=== PATIENT | female | born 1940 | race Caucasian/White ===

== ENCOUNTER 2017-05-10 04:20 | Inpatient (IN) | payer OTHER ==
--- NOTE | 2017-05-10 05:09 | DR.GENAD ---
HPI - Complaint/Symptoms Chief Complaint Doctors Comments: Patient presents with complaint of chest pain midsternal w/o radiation. The pain is sharp has eased off some. She admits to stents x 3 different times last was 2013. Chief Complaint:: PT C/O MIDSTERNAL CHEST PAIN. ONSET 0200. NO RADIATION. NO PAIN AT PRESENT. ALSO C/O NAUSEA AND WEAKNESS - Source History Provided: Patient - Mode of Arrival Mode of Arrival: Wheelchair - Timing Onset of Chief Complaint: 05/10/17 PMH - PMH Past Medical History: Yes Past Medical History: CVA, Diabetes, Dyslipidemia, Hypertension, Hypothyroidism , [place] Past Surgical History: Yes Surgical History: Angioplasty/Stents, Tonsillectomy - Family History History of Family Medical Conditions: Yes Family Medical History: Diabetes Mellitus, Cancer, [place], Hypertension - Social History Do you use any recreational Drugs:: No - infectious screening Have you traveled outside the country in the last 6 months?: No ROS - Review of Systems Eyes: No Symptoms Reported ENTM: No Symptoms Reported Respiratoy: No Symptoms Reported Cardiovascular: No Symptoms Reported Gastrointestinal/Abdominal: No Symptoms Reported Genitourinary: No Symptoms Reported Neurological: No Symptoms Reported Musculoskeletal: No Symptoms Reported Integumentary: Bruises Hematologic/Lymphatic: No Symptoms Reported Endocrine: No Symptoms Reported Psychiatric: No Symptoms Reported All Other Systems: Reviewed and Negative PE - Vital Signs Vitals: Temperature 97.1 F Pulse Rate [Left Radial] 50 Pulse Rate 48 Respiratory Rate 18 Blood Pressure [Right Arm] 173/84 Blood Pressure [Left Arm] 194/74 Blood Pressure 189/81 O2 Sat by Pulse Oximetry 100 - General Limitations: No Limitations General Appearance: Alert, In No Apparent Distress - Head Head Exam: Normal Inspection, Atraumatic - Eyes Eye exam: Normal Appearance, PERRL, EOMI - ENT ENT Exam: Normal Exam External Ear Exam: Normal External Inspection TM/Canal Exam: Bilateral Normal Nose Exam: Normal Nose Exam Mouth Exam: Normal Inspection Course - Reevaluation 1st: - Consultation Called: 07:00 (Dr Burroughs agreed to admit for further treatment and evaluation) ROR - Labs Reviewed Result Diagrams: 05/10/17 04:46 05/10/17 04:46 Laboratory: WBC 10.0 X10^3/uL (3.6-10.0) 05/10/17 04:46 RBC 4.62 X10^6/uL (3.5-5.4) 05/10/17 04:46 Hgb 14.5 g/dL (12.0-16.0) 05/10/17 04:46 Hct 42.8 % (36.0-47.0) 05/10/17 04:46 MCV 92.6 fL (80.0-100.0) 05/10/17 04:46 MCH 31.3 pg (27.0-34.0) 05/10/17 04:46 MCHC 33.8 g/dL (33.0-35.0) 05/10/17 04:46 RDW 13.1 % (11.6-16.5) 05/10/17 04:46 Plt Count 374 X10^3/uL (150.0-450.0) 05/10/17 04:46 MPV 8.1 fL (7.4-11.0) 05/10/17 04:46 Neut % (Auto) 71.5 % (42.0-75.0) 05/10/17 04:46 Lymph % (Auto) 18.5 % (21.0-51.0) L 05/10/17 04:46 Johnston % (Auto) 8.0 % (0.0-13.0) 05/10/17 04:46 Eos % (Auto) 0.8 % (0.9-2.9) L 05/10/17 04:46 Baso % (Auto) 1.2 % (0.2-1.0) H 05/10/17 04:46 Neut # (Auto) 7.1 x10^3/uL (2.2-4.8) H 05/10/17 04:46 Lymph # (Auto) 1.9 X10^3/uL (1.3-2.9) 05/10/17 04:46 Johnston # (Auto) 0.8 x10^3/uL (0.3-0.8) 05/10/17 04:46 Eos # (Auto) 0.1 x10^3/uL (0.0-0.2) 05/10/17 04:46 Baso # (Auto) 0.1 X10^3/uL (0.0-0.1) 05/10/17 04:46 Absolute Nucleated RBC 0.0 /100WBC 05/10/17 04:46 APTT 25.2 SECONDS (22.9-36.5) 05/10/17 04:46 PTT Comment - 05/10/17 04:46 Sodium 138 mmol/L (136-145) 05/10/17 04:46 Corrected Sodium 141 mmol/L (136-145) 05/10/17 04:46 Potassium 3.9 mmol/L (3.5-5.1) 05/10/17 04:46 Chloride 102 mmol/L (98-107) 05/10/17 04:46 Carbon Dioxide 26.6 mmol/L (21-32) 05/10/17 04:46 BUN 35 mg/dL (7-18) H 05/10/17 04:46 Creatinine 1.33 mg/dL (0.55-1.02) H 05/10/17 04:46 Est GFR (MDRD) Af Amer 50 (>60) L 05/10/17 04:46 Est GFR (MDRD) Non-Af 41 (>60) L 05/10/17 04:46 Glucose 215 mg/dL (65-99) H 05/10/17 04:46 Calcium 8.7 mg/dL (8.5-10.1) 05/10/17 04:46 Corrected Calcium 9.3 mg/dL (8.5-10.1) 05/10/17 04:46 Total Bilirubin 0.40 mg/dL (0.2-1.0) 05/10/17 04:46 AST 21 Units/L (15-37) 05/10/17 04:46 ALT 29 Units/L (12-78) 05/10/17 04:46 Alkaline Phosphatase 89 Units/L (46-116) 05/10/17 04:46 Troponin I 0.16 ng/mL (0-1.5) 05/10/17 04:46 Total Protein 7.9 g/dL (6.4-8.2) 05/10/17 04:46 Albumin 3.3 g/dL (3.4-5.0) L 05/10/17 04:46 Globulin 4.6 g/dL (2.5-4.5) H 05/10/17 04:46 Albumin/Globulin Ratio 0.7 Ratio (1.1-2.1) L 05/10/17 04:46 Specimen Type Clean catch urine 05/10/17 05:19 Urine Color Yellow (YELLOW) 05/10/17 05:19 Urine Appearance Clear (CLEAR) 05/10/17 05:19 Urine pH 6.5 (5.0 - 8.0) 05/10/17 05:19 Ur Specific Thermal 1.015 (1.000-1.030) 05/10/17 05:19 Urine Protein 3+ (NEGATIVE) 05/10/17 05:19 Urine Glucose (UA) Negative (NEGATIVE) 05/10/17 05:19 Urine Ketones Negative (NEGATIVE) 05/10/17 05:19 Urine Occult Blood 1+ (NEGATIVE) 05/10/17 05:19 Urine Nitrite Negative (NEGATIVE) 05/10/17 05:19 Urine Bilirubin Negative (NEGATIVE) 05/10/17 05:19 Urine Urobilinogen Normal (NORMAL) 05/10/17 05:19 Ur Leukocyte Esterase 1+ (NEGATIVE) 05/10/17 05:19 Urine RBC 0-2 /HPF (NONE SEEN) 05/10/17 05:19 Urine WBC 0-2 /HPF (NONE SEEN) 05/10/17 05:19 Ur Squamous Epith Cells Few /HPF (NEGATIVE) 05/10/17 05:19 Urine Bacteria Trace /HPF (NEGATIVE) 05/10/17 05:19 Ur Culture Indicated? No/not indicated 05/10/17 05:19 - XRAY XRAY Interpreted by: Radiologist (Chest: cardiomegaly without CHF) - Diagnosis Discharge Problem: Prerenal azotemia Chest pain Qualifiers: Chest pain type: chest pain due to myocardial ischemia Ischemic chest pain type : unspecified angina pectoris type Qualified Code(s): I25.9 - Chronic ischemic heart disease, unspecified - Discharge Plan Condition: Stable - Follow ups/Referrals Follow ups/Referrals: Kyle Burroughs [Primary Care Provider] - 3 days - Instructions
[2017-05-10 05:48] LABS: BASOPHILS # (AUTO) 0.1 X10^3/uL (0.0-0.1); BASOPHILS % (AUTO) 1.2 % (0.2-1.0); EOSINOPHILS # (AUTO) 0.1 x10^3/uL (0.0-0.2); EOSINOPHILS % (AUTO) 0.8 % (0.9-2.9); HEMATOCRIT 42.8 % (36.0-47.0); HEMOGLOBIN 14.5 g/dL (12.0-16.0); LYMPHOCYTES # (AUTO) 1.9 X10^3/uL (1.3-2.9); LYMPHOCYTES % (AUTO) 18.5 % (21.0-51.0); MEAN CORPUSCULAR HEMOGLOBIN 31.3 pg (27.0-34.0); MEAN CORPUSCULAR HGB CONC 33.8 g/dL (33.0-35.0); MEAN CORPUSCULAR VOLUME 92.6 fL (80.0-100.0); MEAN PLATELET VOLUME 8.1 fL (7.4-11.0); MONOCYTES # (AUTO) 0.8 x10^3/uL (0.3-0.8); NEUTROPHILS # (AUTO) 7.1 x10^3/uL (2.2-4.8); NEUTROPHILS % (AUTO) 71.5 % (42.0-75.0); PLATELET COUNT 374 X10^3/uL (150.0-450.0); RED BLOOD COUNT 4.62 X10^6/uL (3.5-5.4); RED CELL DISTRIBUTION WIDTH 13.1 % (11.6-16.5)
[2017-05-10 05:53] LABS: ALBUMIN 3.3 g/dL (3.4-5.0); CALCIUM 8.7 mg/dL (8.5-10.1); CARBON DIOXIDE 26.6 mmol/L (21-32); COR CA(FOR HYPOALB) 9.3 mg/dL (8.5-10.1); CREATININE 1.33 mg/dL (0.55-1.02); TOTAL PROTEIN 7.9 g/dL (6.4-8.2)
[2017-05-10 05:56] LABS: BILIRUBIN,URINE NEGATIVE (NEGATIVE); BLOOD/HEMOGLOBIN,URINE 1+ (NEGATIVE); GLUCOSE, URINE NEGATIVE (NEGATIVE); KETONES,URINE NEGATIVE (NEGATIVE); LEUKOCYTE ESTERASE ,URINE 1+ (NEGATIVE); NITRITES,URINE NEGATIVE (NEGATIVE); PH,URINE 6.5 (5.0 - 8.0); PROTEIN,URINE 3+ (NEGATIVE); UROBILINOGEN,URINE NORMAL (NORMAL)
--- NOTE | 2017-05-10 06:01 | RAD ---
HISTORY: Mid sternal chest pain Study: Chest AP portable Comparison: 09/10/2012 Findings: The heart is enlarged. No congestive heart failure is noted. No acute alveolar infiltrates or pleural effusions are present. The bony thorax is unremarkable. IMPRESSION: Cardiomegaly without congestive heart failure No infiltrates Reported By:
[2017-05-10 06:08] LABS: APPEARANCE,URINE CLEAR (CLEAR); COLOR,URINE YELLOW (YELLOW)
[2017-05-10 06:09] LABS: BACTERIA,URINE TRACE /HPF (NEGATIVE); RBC,URINE 0-2 /HPF (NONE SEEN); SQUAMOUS EPITHELIAL CELL,UR FEW /HPF (NEGATIVE)
[2017-05-10] MEDS ORDERED: MORPHINE SULFATE INJ 2 MG INJ IVP PRN (07:19)
[2017-05-10] MEDS ORDERED: NS 1000 ML 1,000 ML IV SCH (08:00)
[2017-05-10] MEDS ORDERED: SYNTHROID 50 mcg TAB PO SCH (09:00)
[2017-05-10] MEDS ORDERED: NORVASC TAB 10 MG PO SCH (09:00)
[2017-05-10] MEDS: CATAPRES TAB 0.1 MG PO SCH ×5 (10:30→20:46)
[2017-05-10] MEDS: LOPRESSOR TAB 25 MG PO SCH ×2 (10:31→10:35)
[2017-05-10 12:37] LABS: CKMB % 8.9 % (<4); TROPONIN I 0.7 ng/mL (0-1.5)
[2017-05-10] MEDS ORDERED: ZOFRAN INJ 4 MG VIAL IVP PRN ×2 (13:12→22:55)
[2017-05-10 13:49] LABS: CREATINE KINASE MB 6.9 ng/mL (0-4.0)
[2017-05-10] MEDS ORDERED: NEXTERONE IV 150 MG PREMIX* 150 MG/100 ML BAG IV ONE (15:48)
[2017-05-10] MEDS ORDERED: NEXTERONE IV 360 MG PREMIX* 360 MG/200 ML BAG IV PRN ×2 (15:49→15:50)
--- NOTE | 2017-05-10 16:04 | RAD ---
Chest, AP portable Indication: ET tube placement, respiratory failure Comparison: Radiograph from earlier this morning. Findings: Cardiac silhouette enlargement is unchanged. There is worsened pulmonary vascular congestio n with development of central and basilar predominant interstitial opacities. There is hazy right inf rahilar opacity. No large pleural effusion. Interval intubation, with the ET tube tip approximately 3 .5 cm above the richelle. Impression: ET tube in satisfactory position. Cardiomegaly with development of edema, suggestive for CHF. Right infrahilar opacity may represent artifact from superimposed vessels, although other considerati ons include alveolar edema, aspiration, and pneumonitis. Reported By:
[2017-05-10 16:44] LABS: BASOPHILS # (AUTO) 0.2 X10^3/uL (0.0-0.1); BASOPHILS % (AUTO) 1.3 % (0.2-1.0); EOSINOPHILS % (AUTO) 0.3 % (0.9-2.9); HEMATOCRIT 46.4 % (36.0-47.0); HEMOGLOBIN 14.4 g/dL (12.0-16.0); LYMPHOCYTES # (AUTO) 4.4 X10^3/uL (1.3-2.9); LYMPHOCYTES % (AUTO) 32.4 % (21.0-51.0); MEAN CORPUSCULAR HEMOGLOBIN 32.1 pg (27.0-34.0); MEAN CORPUSCULAR HGB CONC 31.1 g/dL (33.0-35.0); MEAN PLATELET VOLUME 8.1 fL (7.4-11.0); MONOCYTES # (AUTO) 0.5 x10^3/uL (0.3-0.8); NEUTROPHILS # (AUTO) 8.4 x10^3/uL (2.2-4.8); PLATELET COUNT 157 X10^3/uL (150.0-450.0); RED CELL DISTRIBUTION WIDTH 14.3 % (11.6-16.5); WHITE BLOOD COUNT 13.5 X10^3/uL (3.6-10.0)
[2017-05-10 17:21] LABS: ABG BASE EXCESS -21.2 mmol/L (-2.0-2.0)
[2017-05-10 17:22] LABS: ABG ALLEN TEST POS
[2017-05-10] MEDS ORDERED: MORPHINE SULFATE PCA 30 MG IVP PRN (18:00)
[2017-05-10] MEDS ORDERED: SODIUM BICARBONATE 8.4% INJ ADULT ONE (18:00)
[2017-05-10] MEDS ORDERED: NS 1000 ML 1,000 ML with SODIUM BICARBONATE 8.4% INJ ADULT 100 ML IV SCH ×2 (18:00)
[2017-05-10] MEDS ORDERED: VERSED ONE (18:04)
[2017-05-10] MEDS ORDERED: NS 100 ML IV 100 ML IV ONE ×2 (18:04→18:54)
[2017-05-10 18:14] LABS: BILIRUBIN,URINE NEGATIVE (NEGATIVE); BLOOD/HEMOGLOBIN,URINE 2+ (NEGATIVE); GLUCOSE, URINE 1+ (NEGATIVE); KETONES,URINE NEGATIVE (NEGATIVE); LEUKOCYTE ESTERASE ,URINE NEGATIVE (NEGATIVE); NITRITES,URINE NEGATIVE (NEGATIVE); PROTEIN,URINE 3+ (NEGATIVE); UROBILINOGEN,URINE NORMAL (NORMAL)
[2017-05-10] MEDS ORDERED: MORPHINE SULFATE PCA 30 MG ONE (18:18)
[2017-05-10 18:35] LABS: ALBUMIN 2.6 g/dL (3.4-5.0); CALCIUM 8.3 mg/dL (8.5-10.1); CKMB % 9.1 % (<4); COR CA(FOR HYPOALB) 9.4 mg/dL (8.5-10.1); CREATININE 1.81 mg/dL (0.55-1.02); TOTAL PROTEIN 6.9 g/dL (6.4-8.2)
[2017-05-10 18:41] LABS: APPEARANCE,URINE CLEAR (CLEAR); COLOR,URINE YELLOW (YELLOW); SQUAMOUS EPITHELIAL CELL,UR RARE /HPF (NEGATIVE)
[2017-05-10 18:42] LABS: BACTERIA,URINE NEGATIVE /HPF (NEGATIVE); HYALINE CASTS, URINE FEW /LPF (NEGATIVE)
[2017-05-10 18:46] LABS: CARBON DIOXIDE 10.6 mmol/L (21-32)
[2017-05-10 18:48] LABS: CREATINE KINASE MB 25.6 ng/mL (0-4.0); TROPONIN I 2.9 ng/mL (0-1.5)
[2017-05-10] MEDS ORDERED: MORPHINE SULFATE INJ 10 MG ONE (18:52)
[2017-05-10] MEDS: VERSED 100 MG in NS 100 ML IV 80 ML IV PRN ×2 (19:15→19:20)
[2017-05-10] MEDS ORDERED: MORPHINE SULFATE INJ 10 MG IVP SCH ×3 (19:30→20:00)
[2017-05-10] MEDS ORDERED: HumuLIN R SUBCUT PRN ×2 (20:17→22:55)
[2017-05-10] MEDS ORDERED: AMBIEN PO SCH (21:00)
[2017-05-10 21:25] LABS: ABG BASE EXCESS -7.4 mmol/L (-2.0-2.0)
[2017-05-10 21:26] LABS: ABG ALLEN TEST POS; ABG HCO3 17.1 mmol/L (22-26)
[2017-05-11] MEDS ORDERED: NS 1000 ML 1,000 ML ONE ×2 (00:19→09:40)
[2017-05-11] MEDS ORDERED: SODIUM BICARBONATE 8.4% INJ ADULT ONE (00:20)
[2017-05-11] MEDS: NS 1000 ML 1,000 ML with SODIUM BICARBONATE 8.4% INJ ADULT 100 ML IV SCH ×8 (01:42→10:50)
[2017-05-11 05:34] LABS: ABG BASE EXCESS 5.1 mmol/L (-2.0-2.0); ABG HCO3 26.6 mmol/L (22-26)
[2017-05-11 05:36] LABS: ABG ALLEN TEST POS
[2017-05-11 05:47] LABS: BASOPHILS % (AUTO) 0.2 % (0.2-1.0); HEMATOCRIT 37.6 % (36.0-47.0); LYMPHOCYTES # (AUTO) 1.7 X10^3/uL (1.3-2.9); LYMPHOCYTES % (AUTO) 9.4 % (21.0-51.0); MEAN CORPUSCULAR HEMOGLOBIN 31.5 pg (27.0-34.0); MEAN CORPUSCULAR HGB CONC 34.5 g/dL (33.0-35.0); MEAN CORPUSCULAR VOLUME 91.1 fL (80.0-100.0); MEAN PLATELET VOLUME 8.3 fL (7.4-11.0); MONOCYTES # (AUTO) 0.8 x10^3/uL (0.3-0.8); MONOCYTES % (AUTO) 4.4 % (0.0-13.0); NEUTROPHILS # (AUTO) 15.8 x10^3/uL (2.2-4.8); PLATELET COUNT 227 X10^3/uL (150.0-450.0); RED BLOOD COUNT 4.12 X10^6/uL (3.5-5.4); WHITE BLOOD COUNT 18.4 X10^3/uL (3.6-10.0)
[2017-05-11 06:22] LABS: ALBUMIN 2.5 g/dL (3.4-5.0); ALKALINE PHOSPHATASE 74 Units/L (46-116); BLOOD UREA NITROGEN 42 mg/dL (7-18); CALCIUM 7.4 mg/dL (8.5-10.1); CARBON DIOXIDE 24.8 mmol/L (21-32); CHLORIDE 109 mmol/L (98-107); CHOLESTEROL 180 mg/dL (0-200); COR CA(FOR HYPOALB) 8.6 mg/dL (8.5-10.1); CREATININE 2.01 mg/dL (0.55-1.02); HDL CHOLESTEROL 45 mg/dL (40-60); SODIUM 146 mmol/L (136-145); TRIGLYCERIDES 71 mg/dL (0-150); eGFR BLACK RACES 31 (>60); eGFR NON BLACK RACES 26 (>60)
[2017-05-11 06:28] LABS: ALANINE AMINOTRANSFERASE 1874 Units/L (12-78)
[2017-05-11] MEDS ORDERED: GLUCOTROL XL PO SCH (07:00)
[2017-05-11 07:04] LABS: ASPARTATE AMINO TRANSFERASE 3913 Units/L (15-37)
[2017-05-11] MEDS: NS 1000 ML 1,000 ML IV SCH ×2 (10:51→21:35)
[2017-05-11 10:56] LABS: CKMB % 7.2 % (<4); CREATINE KINASE MB 282.5 ng/mL (0-4.0)
[2017-05-11 10:57] LABS: TROPONIN I 287.62 ng/mL (0-1.5)
[2017-05-11] MEDS: LOPRESSOR INJ 5 MG AMP IVP SCH ×2 (12:05→18:22)
[2017-05-11 13:04] LABS: CKMB % 5.5 % (<4)
[2017-05-11] MEDS ORDERED: HEPARIN SODIUM INJ 5000 UNITS IVP ONE (13:21)
[2017-05-11 13:55] VITALS: BMI 25.3
[2017-05-11] MEDS: HEPARIN SODIUM IN D5W 25,000 UNITS/500 ML BAG IV PRN (14:00)
[2017-05-11 14:08] LABS: TROPONIN I 398.84 ng/mL (0-1.5)
--- NOTE | 2017-05-11 14:10 | CT ---
HISTORY: Unresponsive Study: CT head without contrast Comparison: None Technique: Axial noncontrast images with coronal and sagittal reformats. Dose reduction procedures we re used with mA/kv adjusted for body size. The examination is somewhat limited by poor positioning. Findings: The ventricles are normal in size shape and position. There is decreased attenuation in the periventr icular white matter suggestive of small vessel vascular disease. There is an area of encephalomalacia involving the left side of the posterior fossa likely due to an old CVA involving the left cerebella r hemisphere. There is abnormal attenuation in the left occipital lobe and posterior parietal abuttin g the tentorium. This may be related to an old infarct however edema secondary to a recent nonhemorrh agic infarct cannot be excluded. MRI with diffusion imaging is recommended for further evaluation. Th ere is no evidence for hemorrhage, mass lesion, or extra-axial fluid collection. No sinuses visualize d were clear. The calvarium is intact. IMPRESSION: Large area of decreased attenuation involving the right posterior parieto-occipital region abutting t he tentorium. This could represent encephalomalacia due to an old CVA, edema secondary to a recent CV A or combination. MRI with diffusion imaging is recommended for further evaluation of this area. 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
[2017-05-11 18:23] LABS: CKMB % 5.3 % (<4)
[2017-05-11 18:55] LABS: CREATINE KINASE MB 260.3 ng/mL (0-4.0)
[2017-05-11 18:56] LABS: TROPONIN I 294.59 ng/mL (0-1.5)
[2017-05-11] MEDS: MORPHINE SULFATE PCA 30 MG IVP PRN (19:30)
[2017-05-11] MEDS: VERSED 100 MG in NS 100 ML IV 80 ML IV PRN (19:35)
--- NOTE | 2017-05-11 21:08 | DR.H&P ---
H&P - History & Physical for Day of: H&P Date: 05/10/17 - Chief Complaint Chief Complaint: CHEST PAIN - Allergies Allergies/Adverse Reactions: Allergies Allergy/AdvReac Type Severity Reaction Status Date / Time No Known Drug Allergies Allergy Verified 05/10/17 07:11 - History of Present Illness History of Present Illness: IS A 77 YEAR OLD PATIENT OF OURS WHO PRESENTED TO THE EMERGENCY ROOM WITH COMPLAINTS OF MIDSTERNAL CHEST PAIN. PATIENT REPORTS THAT SYMPTOMS BEGAN AROUND 2 AM THIS MORNING. PATIENT REPORTS THAT PAIN DOES NOT RADIATE. SHE DESCRIBES IT A SHARP. ASSOCIATED SYMPTOMS ARE NAUSEA AND GENERALIZED WEAKNESS. SHE DENIES SHORTNESS OF BREATH. PATIENT ADMITS TO STENTS X 3 SEVERAL YEARS AGO. MEDICAL HISTORY INCLUDES CVA, DIABETES, DYSLIPIDEMIA, HYPERTENSION, HYPOTHYROIDISM, HI, STENTS, AND TONSILLECTOMY. ON EXAMINATION, HEART IS REGULAR IN RATE AND RHYTHM. BILATERAL LUNGS ARE CLEAR TO AUSCULTATION. ABDOMEN IS ROUND, SOFT, AND NON-TENDER WITH NORMAL BOWEL SOUNDS NOTED IN ALL QUADRANTS. THERE IS NORMAL RANGE OF MOTION NOTED TO ALL EXTREMITIES. ON ARRIVAL, VITALS WERE 97.1-48-18-97%-189/81. LABS WERE OBTAINED. ABNORMAL LAB VALUES INCLUDE THE FOLLOWING: BUN 35, CREATININE 1.33M GFR 41, GLUCOSE 215, ALBUMIN 3.3, GLOBULIN 4.6. A TROPONIN WAS CHECKED AND WAS 0.16. A CHEST XRAY WAS OBTAINED AND REPORTED CARDIOMEGALY WITHOUT CONGESTIVE HEART FAILURE. NO INFILTRATES. EKG REVEALED SINUS RHYTHM WITH HR 53. PATIENT WAS ADMITTED TO THE HOSPITAL FOR FURTHER EVALUATION AND TREATMENT TO RULE OUT ACUTE MYOCARDIAL INFARCTION. WE PLAN TO OBTAIN SERIAL CARDIAC ENZYMES AND EKGS. SHE WILL BE PLACED ON TELEMETRY. WE PLAN TO FOLLOW UP WITH AM LABS AND CONTINUE TO MONITOR PATIENT. - Past Medical History Past Medical History: CVA, Diabetes, Dyslipidemia, Hypertension, Hypothyroidism , [place] - Past Surgical History Surgical History: Angioplasty/Stents, Tonsillectomy - Family History Family Medical History: Diabetes Mellitus, Cancer, [place], Hypertension - Social History Does patient currently use any type of tobacco product: No Have you used tobacco products in the last 12 months: No Alcohol Use: None Drug Use: None - Medications Home Medications: Clonidine HCl [CATAPRES 0.2 MG TAB *] 1 tab PO SMARTV 05/10/17 [History Confirmed 05/10/17] Metoprolol Tartrate [LOPRESSOR 25 MG *] 25 mg PO DAILY 05/10/17 [History Confirmed 05/10/17] - Review of Systems Constitutional: Weakness Eyes: No Symptoms Reported ENT: No Symptoms Reported Respiratory: No Symptoms Reported. denies: Cough, Shortness of Breath, Hemoptysis, SOB with Excertion, Sputum, Wheezing Cardiovascular: Chest Pain Gastrointestinal: Nausea. denies: Vomiting, Abdominal Pain, Diarrhea, Constipation, Melena, Hematochezia Genitourinary: No Symptoms Reported Musculoskeletal: No Symptoms Reported Skin: No Symptoms Reported Neurological: Weakness - Physical Exam Vital Signs: Temperature 98.2 F Pulse Rate [Left Radial] 81 Pulse Rate 48 Respiratory Rate 12 Blood Pressure [Right Calf] 148/70 Blood Pressure [Right Arm] 160/80 Blood Pressure [Left Arm] 143/67 Blood Pressure 148/70 O2 Sat by Pulse Oximetry 98 Oriented: Normal Eyes: Normal Ear: Normal Nose: Normal Throat: Normal Respiratory: Clear Throughout Cardiovascular: Normal. negative: S3, S4, Murmur, Edema : Normal Auscultation: Bowel Sounds: Normal Palpation: Normal Tenderness: Normal. negative: Rebound, Guarding, Rigidity Skin: Normal Musculoskeletal: Normal Psychiatric: Normal Mood Description: Calm Affect: Normal Speech Pattern: Clear - Assessment/Plan (1) Chest pain, rule out acute myocardial infarction Status: Acute Plan: SERIAL CARDIAC ENZYMES AND EKG, TELEMETRY, SUPPLEMENTAL OXYGEN, CONTINUE TO MONITOR
[2017-05-11] MEDS: SNACK - Diabetic Appropriate PO SCH (21:35)
[2017-05-12] MEDS: LOPRESSOR INJ 5 MG AMP IVP SCH ×5 (00:26→20:05)
[2017-05-12 04:45] LABS: ABG ALLEN TEST POS; ABG HCO3 25.2 mmol/L (22-26)
[2017-05-12] MEDS: NS 1000 ML 1,000 ML IV SCH ×2 (06:47→11:22)
--- NOTE | 2017-05-12 06:59 | RAD ---
Examination: AP chest History: Chest pain SOB Comparison 05/10/2017 Findings: Stable heart size with central vascular congestion. Increasing bibasal density consistent w ith airspace disease and probable pleural effusions. Endotracheal tube remains in mid trachea. No com plicating pneumothorax seen. Impression: Increasing bibasal opacities consistent with combination of airspace disease and probable pleural fluid. Findings may be inflammatory or related to increasing CHF. Reported By:
[2017-05-12 08:02] LABS: BASOPHILS # (AUTO) 0.1 X10^3/uL (0.0-0.1); BASOPHILS % (AUTO) 0.3 % (0.2-1.0); HEMATOCRIT 40.2 % (36.0-47.0); HEMOGLOBIN 13.5 g/dL (12.0-16.0); LYMPHOCYTES # (AUTO) 1.8 X10^3/uL (1.3-2.9); LYMPHOCYTES % (AUTO) 9.1 % (21.0-51.0); MEAN CORPUSCULAR HEMOGLOBIN 31.2 pg (27.0-34.0); MEAN CORPUSCULAR HGB CONC 33.6 g/dL (33.0-35.0); MEAN PLATELET VOLUME 8.6 fL (7.4-11.0); MONOCYTES # (AUTO) 1.5 x10^3/uL (0.3-0.8); MONOCYTES % (AUTO) 7.9 % (0.0-13.0); NEUTROPHILS # (AUTO) 16.1 x10^3/uL (2.2-4.8); NEUTROPHILS % (AUTO) 82.7 % (42.0-75.0); PLATELET COUNT 199 X10^3/uL (150.0-450.0); RED BLOOD COUNT 4.32 X10^6/uL (3.5-5.4); RED CELL DISTRIBUTION WIDTH 13.7 % (11.6-16.5); WHITE BLOOD COUNT 19.5 X10^3/uL (3.6-10.0)
[2017-05-12 08:38] LABS: ALBUMIN 2.2 g/dL (3.4-5.0); CALCIUM 7.2 mg/dL (8.5-10.1); CARBON DIOXIDE 22.8 mmol/L (21-32); COR CA(FOR HYPOALB) 8.6 mg/dL (8.5-10.1); CREATININE 2.57 mg/dL (0.55-1.02); TOTAL PROTEIN 6.1 g/dL (6.4-8.2)
[2017-05-12 09:01] LABS: CKMB % 2.3 % (<4)
[2017-05-12 09:05] LABS: CREATINE KINASE MB 64.4 ng/mL (0-4.0)
[2017-05-12 10:18] LABS: TROPONIN I 541.41 ng/mL (0-1.5)
[2017-05-12] MEDS: DIFLUCAN 200 MG IV PREMIX* 200 MG/100 ML BAG IV SCH (12:45)
[2017-05-12] MEDS: LASIX IVP SCH ×2 (12:45→21:40)
[2017-05-12] MEDS: ARTIFICIAL TEARS DROPS AFFEYE SCH ×4 (13:06→21:40)
[2017-05-12] MEDS: SNACK - Diabetic Appropriate PO SCH (20:06)
[2017-05-12] MEDS: HEPARIN SODIUM IN D5W 25,000 UNITS/500 ML BAG IV PRN (22:09)
[2017-05-13] MEDS: LOPRESSOR INJ 5 MG AMP IVP SCH ×5 (00:34→23:00)
[2017-05-13] MEDS: TYLENOL SUPP 650 MG PR PRN ×2 (05:20→11:30)
[2017-05-13 05:27] LABS: ABG ALLEN TEST POS; ABG BASE EXCESS -1.6 mmol/L (-2.0-2.0); ABG HCO3 20.3 mmol/L (22-26)
[2017-05-13 06:24] LABS: BASOPHILS % (AUTO) 0.2 % (0.2-1.0); EOSINOPHILS % (AUTO) 0.1 % (0.9-2.9); HEMOGLOBIN 13.5 g/dL (12.0-16.0); LYMPHOCYTES # (AUTO) 1.4 X10^3/uL (1.3-2.9); LYMPHOCYTES % (AUTO) 7.2 % (21.0-51.0); MEAN CORPUSCULAR HEMOGLOBIN 31.4 pg (27.0-34.0); MEAN CORPUSCULAR HGB CONC 33.9 g/dL (33.0-35.0); MEAN CORPUSCULAR VOLUME 92.6 fL (80.0-100.0); MEAN PLATELET VOLUME 9.1 fL (7.4-11.0); MONOCYTES # (AUTO) 1.5 x10^3/uL (0.3-0.8); MONOCYTES % (AUTO) 7.9 % (0.0-13.0); NEUTROPHILS # (AUTO) 16.6 x10^3/uL (2.2-4.8); NEUTROPHILS % (AUTO) 84.6 % (42.0-75.0); PLATELET COUNT 193 X10^3/uL (150.0-450.0); RED BLOOD COUNT 4.31 X10^6/uL (3.5-5.4); RED CELL DISTRIBUTION WIDTH 13.4 % (11.6-16.5); WHITE BLOOD COUNT 19.6 X10^3/uL (3.6-10.0)
--- NOTE | 2017-05-13 06:58 | RAD ---
HISTORY: Shortness of breath, chest pain, respiratory failure Study: Single-view chest Comparison: 05/12/2017 Findings: Endotracheal tube is in place with the tip the level of medial clavicles. Trachea is midline. Heart s ize is stable. There is aortic uncoiling. Interval improvement in pulmonary vascular congestion is no andrew. There is continued airspace disease present involving the lower lobes, more so on the right side . Bilateral pleural effusions are suspected, larger on the right. Osseous structures are intact. IMPRESSION: Satisfactory position of endotracheal tube. Improvement in pulmonary vascular congestion bilaterally. Continued airspace disease involving the lower lobes, more so on the right side. Bilateral pleural ef fusions are suspected, larger on the right side also. Reported By:
[2017-05-13 07:04] LABS: ALBUMIN 2.2 g/dL (3.4-5.0); CALCIUM 7.6 mg/dL (8.5-10.1); CARBON DIOXIDE 20.8 mmol/L (21-32); CREATININE 3.75 mg/dL (0.55-1.02); TOTAL PROTEIN 6.5 g/dL (6.4-8.2)
[2017-05-13 07:12] LABS: CKMB % 1.5 % (<4)
[2017-05-13] MEDS: XOPENEX 1.25 MG/3 ML NEBULE NEB SCH ×4 (08:12→22:40)
[2017-05-13] MEDS: ARTIFICIAL TEARS DROPS AFFEYE SCH ×4 (08:25→21:52)
[2017-05-13] MEDS: DIFLUCAN 200 MG IV PREMIX* 200 MG/100 ML BAG IV SCH (08:25)
[2017-05-13] MEDS: VERSED 100 MG in NS 100 ML IV 80 ML IV PRN (09:48)
[2017-05-13] MEDS: LEVAQUIN PREMIX IV 250 MG 250 MG/50 ML BAG IV SCH (09:48)
[2017-05-13] MEDS: MORPHINE SULFATE PCA 30 MG IVP PRN (09:51)
[2017-05-13] MEDS: FORTAZ or TAZICEF INJ 1 GM in NS 100 ML IV + SPIKE MINIBAG* 100 ML IV SCH ×3 (10:34→22:58)
[2017-05-13] MEDS: SNACK - Diabetic Appropriate PO SCH (20:03)
--- NOTE | 2017-05-13 21:17 | PCM.PROG ---
Progress Note - Progress Note for Day of Date: 05/11/17 - Subjective Subjective: WAS ADMITTED FOR CHEST PAIN, RULE OUT ACUTE MYOCARDIAL INFARCTION. PATIENT BEGAN WITH INCREASED CHEST PAIN AROUND 1300 YESTERDAY FOR WHICH SHE WAS GIVEN MORPHINE. SHE WAS ALSO GIVEN ZOFRAN FOR AN EPISODE OF NAUSEA AND VOMITING. STAFF REPORTED THAT UPON ROUTINE NURSING CHECKS AT APPROXIMATELY 1305, PATIENT WAS FOUND TO BE FOAMING AT THE MOUTH AND WAS UNRESPONSIVE TO TOUCH OR STIMULATION. A CODE WAS CALLED. AN ABG REVEALED PH 7.050, PC02 29, P02 301.0, HC03 8.0, BASE EXCESS -21.2. PATIENT WAS INTUBATED AND PLACED ON THE MECHANICAL VENTILLATOR. LABS WERE OBTAINED AND REVEALED CARBON DIOXIDE 10.6, BUN 35, CREATININE 1.81, GLUCOSE 575, CALCIUM 8.3, AST 1547 , ALT 1471, CREATINE KINASE 283, CK-MB 25.6, TROPONIN 2.90, ALBUMIN 2.6. CHEST XRAY REVEALED CARDIOMEGALY WITH DEVELOPMENT OF EDEMA, SUGGESTIVE FOR CHF. RIGHT INFRAHILAR OPACITY MAY REPRESENT ARTIFACT FROM SUPERIMPOSED VESSELS, ALTHOUGH OTHER CONSIDERATIONS INCLUDE ALVEOLAR EDEMA, ASPIRATION, AND PNEUMONITIS. SHE WAS TRANSFERRED TO THE INTENSIVE CARE UNIT ON AN EIPNEPHRINE DRIP, MORPHINE DRIP , VERSED DRIP, AND NORMAL SALINE WITH 2 AMPS OF SODIUM BICARB AT 150ML/HR. FAMILY REFUSED FOR TRANSFER TO [facility]. TODAY, PATIENT REMAINS ON THE MECHANICAL VENTILLATOR IN THE INTENSIVE CARE UNIT. SHE REMAINS SEDATED. HER VITALS THIS MORNING ARE 99.0-83-12-99%-148/73. LABS WERE OBTAINED. ABNORMAL LAB VALUES INCLUDE THE FOLLOWING: WBC 18.4, SODIUM 146, CHLORIDE 109, BUN 42, CREATININE 2.01, GLUCOSE 108, CALCIUM 7.4, AST 3913, ALT 1874, TOTAL PROTEIN 6.0, ALBUMIN 2.5, CREATINE KINASE 3947, CK-MB 282.5, TROPONIN 287.62. WE SPOKE WITH FAMILY REGARDING PATIENTS CONDITION. THEY WISH FOR PATIENT TO REMAIN HERE AND NOT TRANSFERRED. TODAY, WE WILL OBTAIN A BRAIN CT WITHOUT CONTRAST. OTHERWISE, WE WILL CONTINUE WITH CURRENT PLAN OF CARE. WE WILL FOLLOW UP WITH AM LABS, CHEST XRAY, AND ABG. WE WILL ATTEMPT TO WEAN PATIENT OFF OF SEDATION AND DOWN ON OXYGEN. - Past Medical Family Social History Past Med/Fam/Surg Hx: No changes since H&P Allergies: Allergies No Known Drug Allergies Allergy (Verified 05/10/17 07:11) - Review of Systems ROS: No change since H&P - Vital Signs and I&O's Vital Signs: Temperature 99.8 F Pulse Rate [Left Radial] 90 Pulse Rate 80 Respiratory Rate 15 Blood Pressure [Right Calf] 99/50 Blood Pressure [Right Arm] 160/80 Blood Pressure [Left Arm] 143/67 Blood Pressure 115/57 O2 Sat by Pulse Oximetry 90 Intake and Output: Intake & Output 05/11/17 05/12/17 05/13/17 05/14/17 11:59 11:59 11:59 11:59 Intake Total 1905 3038 1169 472 Output Total 700 575 500 150 Balance 1205 2463 669 322 - Physical Exam Oriented: Unable to test Eyes: Normal Ear: Normal Nose: Normal Throat: Normal Respiratory: Generalized, Wheezes, Rhonchi Cardiovascular: Edema (GENERALIZED EDEMA ). negative: S3, S4, Murmur Auscultation: Bowel Sounds: Normal Palpation: Normal Tenderness: Normal Skin: Normal Musculoskeletal: Normal Psychiatric: Other (SEDATED) Speech Pattern: Artificially Ventilated - Laboratory and Diagnostics Result Diagrams: 05/13/17 06:11 05/13/17 06:11 Labs: 05/10/17 17:24 Sputum - Expectorated Sputum Sputum Culture - Final 05/10/17 17:24 Sputum - Expectorated Sputum - Final Laboratory WBC 19.6 X10^3/uL (3.6-10.0) H 05/13/17 06:11 RBC 4.31 X10^6/uL (3.5-5.4) 05/13/17 06:11 Hgb 13.5 g/dL (12.0-16.0) 05/13/17 06:11 Hct 40.0 % (36.0-47.0) 05/13/17 06:11 MCV 92.6 fL (80.0-100.0) 05/13/17 06:11 MCH 31.4 pg (27.0-34.0) 05/13/17 06:11 MCHC 33.9 g/dL (33.0-35.0) 05/13/17 06:11 RDW 13.4 % (11.6-16.5) 05/13/17 06:11 Plt Count 193 X10^3/uL (150.0-450.0) 05/13/17 06:11 MPV 9.1 fL (7.4-11.0) 05/13/17 06:11 Neut % (Auto) 84.6 % (42.0-75.0) H 05/13/17 06:11 Lymph % (Auto) 7.2 % (21.0-51.0) L 05/13/17 06:11 Cannon % (Auto) 7.9 % (0.0-13.0) 05/13/17 06:11 Eos % (Auto) 0.1 % (0.9-2.9) L 05/13/17 06:11 Baso % (Auto) 0.2 % (0.2-1.0) 05/13/17 06:11 Neut # (Auto) 16.6 x10^3/uL (2.2-4.8) H 05/13/17 06:11 Lymph # (Auto) 1.4 X10^3/uL (1.3-2.9) 05/13/17 06:11 Cannon # (Auto) 1.5 x10^3/uL (0.3-0.8) H 05/13/17 06:11 Eos # (Auto) 0.0 x10^3/uL (0.0-0.2) 05/13/17 06:11 Baso # (Auto) 0.0 X10^3/uL (0.0-0.1) 05/13/17 06:11 Absolute Nucleated RBC 0.0 /100WBC 05/13/17 06:11 INR Target Range - 05/11/17 11:28 INR 1.21 (0.8-1.3) 05/11/17 11:28 APTT 74.1 SECONDS (22.9-36.5) H 05/13/17 06:11 PTT Comment - 05/13/17 06:11 Sample Site Lrad 05/13/17 05:08 ABG pH 7.500 (7.35-7.45) H 05/13/17 05:08 ABG pCO2 26.0 mmHg (35.0-45.0) L 05/13/17 05:08 ABG pO2 86.0 mmHg (80.0-100.0) 05/13/17 05:08 ABG HCO3 20.3 mmol/L (22-26) L 05/13/17 05:08 ABG O2 Saturation 97.0 % (90-100) 05/13/17 05:08 ABG Base Excess -1.6 mmol/L (-2.0-2.0) 05/13/17 05:08 Lorenzo Test Pos 05/13/17 05:08 A-a Gradient 167.0 mmHg 05/13/17 05:08 FiO2 40.000 05/13/17 05:08 Blood Gas Comments Alexa abg well-mtf 05/13/17 05:08 Sodium 149 mmol/L (136-145) H 05/13/17 06:11 Corrected Sodium 150 mmol/L (136-145) H 05/13/17 06:11 Potassium 3.9 mmol/L (3.5-5.1) 05/13/17 06:11 Chloride 113 mmol/L (98-107) H 05/13/17 06:11 Carbon Dioxide 20.8 mmol/L (21-32) L 05/13/17 06:11 BUN 72 mg/dL (7-18) H 05/13/17 06:11 Creatinine 3.75 mg/dL (0.55-1.02) H 05/13/17 06:11 Est GFR (MDRD) Af Amer 15 (>60) L 05/13/17 06:11 Est GFR (MDRD) Non-Af 12 (>60) L 05/13/17 06:11 Glucose 153 mg/dL (65-99) H 05/13/17 06:11 POC Glucose (mg/dL) 127 mg/dL (65-99) H 05/13/17 17:18 Calcium 7.6 mg/dL (8.5-10.1) L 05/13/17 06:11 Corrected Calcium 9.0 mg/dL (8.5-10.1) 05/13/17 06:11 Total Bilirubin 0.90 mg/dL (0.2-1.0) 05/13/17 06:11 AST 764 Units/L (15-37) H 05/13/17 06:11 ALT 1165 Units/L (12-78) H 05/13/17 06:11 Alkaline Phosphatase 76 Units/L (46-116) 05/13/17 06:11 Creatine Kinase 1662 Units/L (26-192) H 05/13/17 06:11 CK-MB (CK-2) ng/mL (0-4.0) 05/13/17 06:11 CK/CKMB % Calc 1.5 % (<4) 05/13/17 06:11 Troponin I ng/mL (0-1.5) 05/13/17 06:11 Total Protein 6.5 g/dL (6.4-8.2) 05/13/17 06:11 Albumin 2.2 g/dL (3.4-5.0) L 05/13/17 06:11 Globulin 4.3 g/dL (2.5-4.5) 05/13/17 06:11 Albumin/Globulin Ratio 0.5 Ratio (1.1-2.1) L 05/13/17 06:11 Prealbumin 16.4 mg/dL (18-35.7) L 05/13/17 06:11 Triglycerides 71 mg/dL (0-150) 05/11/17 05:15 Cholesterol 180 mg/dL (0-200) 05/11/17 05:15 LDL Cholesterol, Calc 121 mg/dL (0-100) H 05/11/17 05:15 HDL Cholesterol 45 mg/dL (40-60) 05/11/17 05:15 Cholesterol/HDL Ratio 4.0 (0.0-5.0) 05/11/17 05:15 Specimen Type Catherized urine 05/10/17 17:21 Urine Color Yellow (YELLOW) 05/10/17 17:21 Urine Appearance Clear (CLEAR) 05/10/17 17:21 Urine pH 6.0 (5.0 - 8.0) 05/10/17 17:21 Ur Specific [place] 1.015 (1.000-1.030) 05/10/17 17:21 Urine Protein 3+ (NEGATIVE) 05/10/17 17:21 Urine Glucose (UA) 1+ (NEGATIVE) 05/10/17 17:21 Urine Ketones Negative (NEGATIVE) 05/10/17 17:21 Urine Occult Blood 2+ (NEGATIVE) 05/10/17 17:21 Urine Nitrite Negative (NEGATIVE) 05/10/17 17:21 Urine Bilirubin Negative (NEGATIVE) 05/10/17 17:21 Urine Urobilinogen Normal (NORMAL) 05/10/17 17:21 Ur Leukocyte Esterase Negative (NEGATIVE) 05/10/17 17:21 Urine RBC 5-10 /HPF (NONE SEEN) 05/10/17 17:21 Urine WBC 0-2 /HPF (NONE SEEN) 05/10/17 17:21 Ur Squamous Epith Cells Rare /HPF (NEGATIVE) 05/10/17 17:21 Urine Bacteria Negative /HPF (NEGATIVE) 05/10/17 17:21 Hyaline Casts Few /LPF (NEGATIVE) 05/10/17 17:21 Ur Culture Indicated? No/not indicated 05/10/17 17:21 Acetone, Semi-Quant Negative (NEGATIVE) 05/10/17 16:22 - Plan (1) Myocardial infarction Status: Suspected Qualifiers: Myocardial infarction type: unspecified Involved coronary artery: unspecified coronary artery Qualified Code(s): I21.9 - Acute myocardial infarction, unspecified Plan: EPINEPHRINE DRIP, MECHANICAL VENTILLATION, VERSED DRIP AND MORPHINE DRIP FOR SEDATION, RESPIRATORY TREATMENTS, MONITOR SERIAL CARDIAC ENZYMES AND EKG, CONTINUE TO MONITOR (2) Respiratory failure requiring intubation Status: Acute Plan: MECHANICAL VENTILLATION, EPINEPHRINE DRIP, VERSED DRIP AND MORPHINE DRIP FOR SEDATION, RESPIRATORY TREATMENTS, MONITOR SERIAL CARDIAC ENZYMES AND EKG, CONTINUE TO MONITOR
[2017-05-14 05:02] LABS: ABG BASE EXCESS -2.4 mmol/L (-2.0-2.0); ABG HCO3 21.6 mmol/L (22-26)
[2017-05-14 05:03] LABS: ABG ALLEN TEST POS
[2017-05-14] MEDS: FORTAZ or TAZICEF INJ 1 GM in NS 100 ML IV + SPIKE MINIBAG* 100 ML IV SCH ×3 (06:37→22:50)
[2017-05-14] MEDS: LOPRESSOR INJ 5 MG AMP IVP SCH ×4 (06:38→23:07)
[2017-05-14 07:36] LABS: BASOPHILS # (AUTO) 0.1 X10^3/uL (0.0-0.1); BASOPHILS % (AUTO) 0.4 % (0.2-1.0); EOSINOPHILS % (AUTO) 0.1 % (0.9-2.9); HEMATOCRIT 43.7 % (36.0-47.0); HEMOGLOBIN 14.5 g/dL (12.0-16.0); LYMPHOCYTES # (AUTO) 1.6 X10^3/uL (1.3-2.9); LYMPHOCYTES % (AUTO) 7.7 % (21.0-51.0); MEAN CORPUSCULAR HEMOGLOBIN 31.4 pg (27.0-34.0); MEAN CORPUSCULAR HGB CONC 33.1 g/dL (33.0-35.0); MEAN CORPUSCULAR VOLUME 94.9 fL (80.0-100.0); MONOCYTES # (AUTO) 1.4 x10^3/uL (0.3-0.8); NEUTROPHILS # (AUTO) 17.4 x10^3/uL (2.2-4.8); NEUTROPHILS % (AUTO) 84.8 % (42.0-75.0); PLATELET COUNT 216 X10^3/uL (150.0-450.0); RED BLOOD COUNT 4.61 X10^6/uL (3.5-5.4); RED CELL DISTRIBUTION WIDTH 13.9 % (11.6-16.5); WHITE BLOOD COUNT 20.4 X10^3/uL (3.6-10.0)
--- NOTE | 2017-05-14 07:48 | RAD ---
Exam: Chest, frontal view dated 05/14/2017 at 7:07 a.m. History: 77-year-old female with shortness of breath Comparison: Previous chest radiograph from 05/13/2017 Findings: ETT remains in a satisfactory position. Cardiomegaly with slight increase in degree of pulmonary vasc ular congestion is present. Increasing haziness over the lung bases may represent a combination of en larging pleural effusions and underlying basilar airspace disease. Impression: Cardiomegaly with slight increase in degree of vascular congestion. Enlarging bilateral pleural effusions and underlying bibasilar airspace disease. Reported By:
[2017-05-14 08:12] LABS: ALBUMIN 2.1 g/dL (3.4-5.0); CALCIUM 7.7 mg/dL (8.5-10.1); CARBON DIOXIDE 19.1 mmol/L (21-32); CKMB % 1.2 % (<4); COR CA(FOR HYPOALB) 9.2 mg/dL (8.5-10.1); CREATININE 4.02 mg/dL (0.55-1.02); TOTAL PROTEIN 7.1 g/dL (6.4-8.2)
[2017-05-14 08:50] LABS: CREATINE KINASE MB 7.8 ng/mL (0-4.0)
[2017-05-14] MEDS: XOPENEX 1.25 MG/3 ML NEBULE NEB SCH ×4 (08:51→20:10)
[2017-05-14 08:52] LABS: TROPONIN I 103.85 ng/mL (0-1.5)
[2017-05-14] MEDS: DIFLUCAN 200 MG IV PREMIX* 200 MG/100 ML BAG IV SCH (08:53)
[2017-05-14] MEDS: ARTIFICIAL TEARS DROPS AFFEYE SCH ×4 (08:53→20:50)
[2017-05-14] MEDS: LEVAQUIN PREMIX IV 250 MG 250 MG/50 ML BAG IV SCH (08:53)
[2017-05-14] MEDS: HEPARIN SODIUM IN D5W 25,000 UNITS/500 ML BAG IV PRN (09:01)
[2017-05-14 10:01] LABS: CREATINE KINASE MB 25.1 ng/mL (0-4.0)
[2017-05-14 10:03] LABS: TROPONIN I 165.51 ng/mL (0-1.5)
--- NOTE | 2017-05-14 11:48 | PCM.PROG ---
Progress Note - Progress Note for Day of Date: 05/12/17 - Subjective Subjective: IS BEING TREATED FOR AN ACUTE MYOCARDIAL INFARCTION AND RESPIRATORY FAILURE. TODAY, PATIENT REMAINS ON THE MECHANICAL VENTILLATOR IN THE INTENSIVE CARE UNIT. SHE REMAINS SEDATED. STAFF REPORTS THAT SEDATION WAS HELD FOR A BRIEF PERIOD YESTERDAY, HOWEVER, PATIENT BECAME AGITATED AND HEART RATE AND BLOOD PRESSURE BEGAN TO RISE. HER VITALS THIS MORNING ARE 99.5-80 -17-98%-125/58. LABS WERE OBTAINED. ABNORMAL LAB VALUES INCLUDE THE FOLLOWING: WBC INCREASED FROM 18.4 TO 19.5, SODIUM 149, CHLORIDE 113, BUN 51, CREATININE 2.57, GLUCOSE 141, CALCIUM 7.2, AST 1241, ALT 1320, CREATINIE KINASE 2805, CK- MB 64.4, TROPONIN INCREASED FROM 294.59 TO 541.41, TOTAL PROTEIN 6.1, ALBUMIN 2.2. AN ARTERIAL BLOOD GAS WAS DRAWN THIS MORNING AND REVEALED PH 7.430, PC02 38 , P02 60, 02 SATURATION 91. A CHEST XRAY REVEALED INCREASING BIBASAL OPACITIES CONSISTENT WITH COMBINATION OF AIRSPACE DISEASE AND PROBABLE PLEURAL FLUID. FINDINGS MAY BE INFLAMMATORY OR RELATED TO INCREASING CHF. A BRAIN CT WAS OBTAINED YESTERDAY AND REVEALED LARGE AREA OF DECREASED ATTENUATION INVOLVING THE RIGHT POSTERIOR PARIETO-OCCIPITAL REGION ABUTTING THE TENTORIUM. THIS COULD REPRESENT ENCEPHALOMALACIA DUE TO AN OLD CVA, EDEMA SECONDARY TO A RECENT CVA, OR COMBINATION. 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 TODAY, WE WILL START LASIX 40MG IV Q12H X 2 DOSES AND SALINE LOCK IV FLUIDS. OTHERWISE, WE WILL CONTINUE WITH CURRENT PLAN OF CARE. WE WILL FOLLOW UP WITH AM LABS, CHEST XRAY, CARDIAC ENZYMES, AND ABG. WE WILL ATTEMPT TO WEAN PATIENT OFF OF SEDATION AND DOWN ON OXYGEN. - Past Medical Family Social History Past Med/Fam/Surg Hx: No changes since H&P Allergies: Allergies No Known Drug Allergies Allergy (Verified 05/10/17 07:11) - Review of Systems ROS: No change since H&P - Vital Signs and I&O's Vital Signs: Temperature 99.2 F Pulse Rate [Left Radial] 100 Pulse Rate 81 Respiratory Rate 12 Blood Pressure [Right Calf] 95/65 Blood Pressure [Right Arm] 160/80 Blood Pressure [Left Arm] 143/67 Blood Pressure 104/55 O2 Sat by Pulse Oximetry 94 Intake and Output: Intake & Output 05/11/17 05/12/17 05/13/17 05/14/17 11:59 11:59 11:59 11:59 Intake Total 1905 3038 1169 940 Output Total 700 575 500 500 Balance 1205 2463 669 440 - Physical Exam Oriented: Unable to test Eyes: Normal Ear: Normal Nose: Normal Throat: Normal Respiratory: Generalized, Wheezes, Rhonchi Cardiovascular: Edema (GENERALIZED EDEMA ). negative: S3, S4, Murmur : Normal Auscultation: Bowel Sounds: Normal Palpation: Normal Tenderness: Normal Skin: Normal Musculoskeletal: Normal Psychiatric: Other (SEDATED) Mood Description: Calm Affect: Normal Speech Pattern: Artificially Ventilated - Laboratory and Diagnostics Result Diagrams: 05/14/17 07:20 05/14/17 07:20 Labs: 05/10/17 17:24 Sputum - Expectorated Sputum Sputum Culture - Final 05/10/17 17:24 Sputum - Expectorated Sputum - Final Laboratory WBC 20.4 X10^3/uL (3.6-10.0) H 05/14/17 07:20 RBC 4.61 X10^6/uL (3.5-5.4) 05/14/17 07:20 Hgb 14.5 g/dL (12.0-16.0) 05/14/17 07:20 Hct 43.7 % (36.0-47.0) 05/14/17 07:20 MCV 94.9 fL (80.0-100.0) 05/14/17 07:20 MCH 31.4 pg (27.0-34.0) 05/14/17 07:20 MCHC 33.1 g/dL (33.0-35.0) 05/14/17 07:20 RDW 13.9 % (11.6-16.5) 05/14/17 07:20 Plt Count 216 X10^3/uL (150.0-450.0) 05/14/17 07:20 MPV 10.0 fL (7.4-11.0) 05/14/17 07:20 Neut % (Auto) 84.8 % (42.0-75.0) H 05/14/17 07:20 Lymph % (Auto) 7.7 % (21.0-51.0) L 05/14/17 07:20 [place] % (Auto) 7.0 % (0.0-13.0) 05/14/17 07:20 Eos % (Auto) 0.1 % (0.9-2.9) L 05/14/17 07:20 Baso % (Auto) 0.4 % (0.2-1.0) 05/14/17 07:20 Neut # (Auto) 17.4 x10^3/uL (2.2-4.8) H 05/14/17 07:20 Lymph # (Auto) 1.6 X10^3/uL (1.3-2.9) 05/14/17 07:20 [place] # (Auto) 1.4 x10^3/uL (0.3-0.8) H 05/14/17 07:20 Eos # (Auto) 0.0 x10^3/uL (0.0-0.2) 05/14/17 07:20 Baso # (Auto) 0.1 X10^3/uL (0.0-0.1) 05/14/17 07:20 Absolute Nucleated RBC 0.8 /100WBC 05/14/17 07:20 INR Target Range - 05/11/17 11:28 INR 1.21 (0.8-1.3) 05/11/17 11:28 APTT 46.1 SECONDS (22.9-36.5) H 05/14/17 07:20 PTT Comment - 05/14/17 07:20 Sample Site Rrad 05/14/17 04:43 ABG pH 7.410 (7.35-7.45) 05/14/17 04:43 ABG pCO2 34.0 mmHg (35.0-45.0) L 05/14/17 04:43 ABG pO2 67.0 mmHg (80.0-100.0) L 05/14/17 04:43 ABG HCO3 21.6 mmol/L (22-26) L 05/14/17 04:43 ABG O2 Saturation 93.0 % (90-100) 05/14/17 04:43 ABG Base Excess -2.4 mmol/L (-2.0-2.0) L 05/14/17 04:43 Lorenzo Test Pos 05/14/17 04:43 A-a Gradient 461.0 mmHg 05/14/17 04:43 FiO2 80.000 05/14/17 04:43 Blood Gas Comments Alexa abg well-mtf 05/14/17 04:43 Sodium 148 mmol/L (136-145) H 05/14/17 07:20 Corrected Sodium 149 mmol/L (136-145) H 05/14/17 07:20 Potassium 6.0 mmol/L (3.5-5.1) H* 05/14/17 07:20 Chloride 112 mmol/L (98-107) H 05/14/17 07:20 Carbon Dioxide 19.1 mmol/L (21-32) L 05/14/17 07:20 BUN 93 mg/dL (7-18) H 05/14/17 07:20 Creatinine 4.02 mg/dL (0.55-1.02) H 05/14/17 07:20 Est GFR (MDRD) Af Amer 14 (>60) L 05/14/17 07:20 Est GFR (MDRD) Non-Af 12 (>60) L 05/14/17 07:20 Glucose 160 mg/dL (65-99) H 05/14/17 07:20 POC Glucose (mg/dL) 170 mg/dL (65-99) H 05/14/17 06:30 Calcium 7.7 mg/dL (8.5-10.1) L 05/14/17 07:20 Corrected Calcium 9.2 mg/dL (8.5-10.1) 05/14/17 07:20 Total Bilirubin 1.20 mg/dL (0.2-1.0) H 05/14/17 07:20 AST 822 Units/L (15-37) H 05/14/17 07:20 ALT 1415 Units/L (12-78) H 05/14/17 07:20 Alkaline Phosphatase 82 Units/L (46-116) 05/14/17 07:20 Creatine Kinase 671 Units/L (26-192) H 05/14/17 07:20 CK-MB (CK-2) 7.8 ng/mL (0-4.0) H* 05/14/17 07:20 CK/CKMB % Calc 1.2 % (<4) 05/14/17 07:20 Troponin I 103.85 ng/mL (0-1.5) H* 05/14/17 07:20 Total Protein 7.1 g/dL (6.4-8.2) 05/14/17 07:20 Albumin 2.1 g/dL (3.4-5.0) L 05/14/17 07:20 Globulin 5.0 g/dL (2.5-4.5) H 05/14/17 07:20 Albumin/Globulin Ratio 0.4 Ratio (1.1-2.1) L 05/14/17 07:20 Prealbumin 16.4 mg/dL (18-35.7) L 05/13/17 06:11 Triglycerides 71 mg/dL (0-150) 05/11/17 05:15 Cholesterol 180 mg/dL (0-200) 05/11/17 05:15 LDL Cholesterol, Calc 121 mg/dL (0-100) H 05/11/17 05:15 HDL Cholesterol 45 mg/dL (40-60) 05/11/17 05:15 Cholesterol/HDL Ratio 4.0 (0.0-5.0) 05/11/17 05:15 Specimen Type Catherized urine 05/10/17 17:21 Urine Color Yellow (YELLOW) 05/10/17 17:21 Urine Appearance Clear (CLEAR) 05/10/17 17:21 Urine pH 6.0 (5.0 - 8.0) 05/10/17 17:21 Ur Specific [place] 1.015 (1.000-1.030) 05/10/17 17:21 Urine Protein 3+ (NEGATIVE) 05/10/17 17:21 Urine Glucose (UA) 1+ (NEGATIVE) 05/10/17 17:21 Urine Ketones Negative (NEGATIVE) 05/10/17 17:21 Urine Occult Blood 2+ (NEGATIVE) 05/10/17 17:21 Urine Nitrite Negative (NEGATIVE) 05/10/17 17:21 Urine Bilirubin Negative (NEGATIVE) 05/10/17 17:21 Urine Urobilinogen Normal (NORMAL) 05/10/17 17:21 Ur Leukocyte Esterase Negative (NEGATIVE) 05/10/17 17:21 Urine RBC 5-10 /HPF (NONE SEEN) 05/10/17 17:21 Urine WBC 0-2 /HPF (NONE SEEN) 05/10/17 17:21 Ur Squamous Epith Cells Rare /HPF (NEGATIVE) 05/10/17 17:21 Urine Bacteria Negative /HPF (NEGATIVE) 05/10/17 17:21 Hyaline Casts Few /LPF (NEGATIVE) 05/10/17 17:21 Ur Culture Indicated? No/not indicated 05/10/17 17:21 Acetone, Semi-Quant Negative (NEGATIVE) 05/10/17 16:22 - Plan (1) Myocardial infarction Status: Suspected Qualifiers: Myocardial infarction type: unspecified Involved coronary artery: unspecified coronary artery Qualified Code(s): I21.9 - Acute myocardial infarction, unspecified Plan: EPINEPHRINE DRIP, MECHANICAL VENTILLATION, VERSED DRIP AND MORPHINE DRIP FOR SEDATION, RESPIRATORY TREATMENTS, MONITOR SERIAL CARDIAC ENZYMES AND EKG, CONTINUE TO MONITOR (2) Respiratory failure requiring intubation Status: Acute Plan: MECHANICAL VENTILLATION, EPINEPHRINE DRIP, VERSED DRIP AND MORPHINE DRIP FOR SEDATION, RESPIRATORY TREATMENTS, MONITOR SERIAL CARDIAC ENZYMES AND EKG, CONTINUE TO MONITOR (3) Congestive heart failure Status: Acute Qualifiers: Heart failure type: unspecified Heart failure chronicity: acute Qualified Code(s): I50.9 - Heart failure, unspecified Plan: LASIX 40MG IV Q12H X 2 DOSES, CONTINUE TO MONITOR
[2017-05-14] MEDS ORDERED: HEPARIN SODIUM INJ 5000 UNITS IVP ONE (15:00)
[2017-05-14] MEDS: VERSED 100 MG in NS 100 ML IV 80 ML IV PRN (19:14)
[2017-05-14] MEDS: TYLENOL SUPP 650 MG PR PRN (19:16)
[2017-05-14] MEDS: MORPHINE SULFATE PCA 30 MG IVP PRN (19:16)
[2017-05-14] MEDS: SNACK - Diabetic Appropriate PO SCH (20:19)
--- NOTE | 2017-05-14 21:52 | PCM.PROG ---
Progress Note - Progress Note for Day of Date: 05/13/17 - Subjective Subjective: IS BEING TREATED FOR AN ACUTE MYOCARDIAL INFARCTION AND RESPIRATORY FAILURE. TODAY, PATIENT REMAINS ON THE MECHANICAL VENTILLATOR IN THE INTENSIVE CARE UNIT. SHE REMAINS SEDATED. STAFF WAS UNABLE TO WEAN PATIENT OFF OF SEDATION YESTERDAY DUE TO INCREASED HEART RATE AND AGITATION. HER VITALS THIS MORNING ARE 99.5-101-15-97%-140/77. LABS WERE OBTAINED. ABNORMAL LAB VALUES INCLUDE THE FOLLOWING: WBC INCREASED FROM 19.5 TO 19.6, SODIUM 149, CHLORIDE 13, CARBON DIOXIDE 20.8, BUN 72, CREATININE 3.75, GLUCOSE 153, CALCIUM 7.6, AST 764, ALT 1165, CREATINE KINASE 25.1, TROPONIN 165.51, ALBUMIN 2.2. AN ARTERIAL BLOOD GAS WAS DRAWN THIS MORNING AND REVEALED PH 7.500 , PC02 26, P02 86, HC03 20.3, BASE EXCESS -1.6. A CHEST XRAY REVEALED IMPROVEMENT IN PULMONARY VASCULAR CONGESTION BILATERALLY. CONTINUED AIRSPACE DISEASE INVOLVING THE LOWER LOBES, [place] ON THE RIGHT SIDE. BILATERAL PLEURAL EFFUSIONS ARE SUSPECTED, LARGER ON THE RIGHT SIDE ALSO. TODAY, WE WILL OBTAIN AN ECHOCARDIOGRAM. OTHERWISE, WE WILL CONTINUE WITH CURRENT PLAN OF CARE. WE WILL FOLLOW UP WITH AM LABS, CHEST XRAY, CARDIAC ENZYMES, AND ABG. WE WILL ATTEMPT TO WEAN PATIENT OFF OF SEDATION AND DOWN ON OXYGEN. - Past Medical Family Social History Past Med/Fam/Surg Hx: No changes since H&P Allergies: Allergies No Known Drug Allergies Allergy (Verified 05/10/17 07:11) - Review of Systems ROS: No change since H&P - Vital Signs and I&O's Vital Signs: Temperature 99.7 F Pulse Rate [Left Radial] 99 Pulse Rate 97 Respiratory Rate 15 Blood Pressure [Right Calf] 109/56 Blood Pressure [Right Arm] 160/80 Blood Pressure [Left Arm] 143/67 Blood Pressure 109/56 O2 Sat by Pulse Oximetry 98 Intake and Output: Intake & Output 05/12/17 05/13/17 05/14/17 05/15/17 11:59 11:59 11:59 11:59 Intake Total 3039 1169 940 696 Output Total 576 500 500 275 Balance 2463 669 187 421 - Physical Exam Oriented: Unable to test Eyes: Normal Ear: Normal Nose: Normal Throat: Normal Respiratory: Generalized, Wheezes, Rhonchi Cardiovascular: Edema (GENERALIZED EDEMA ). negative: S3, S4, Murmur : Normal Auscultation: Bowel Sounds: Normal Palpation: Normal Tenderness: Normal Skin: Normal Musculoskeletal: Normal Psychiatric: Other (SEDATED) Mood Description: Calm Affect: Normal Speech Pattern: Artificially Ventilated - Laboratory and Diagnostics Result Diagrams: 05/14/17 07:20 05/14/17 07:20 Labs: 05/10/17 17:24 Sputum - Expectorated Sputum Sputum Culture - Final 05/10/17 17:24 Sputum - Expectorated Sputum - Final Laboratory WBC 20.4 X10^3/uL (3.6-10.0) H 05/14/17 07:20 RBC 4.61 X10^6/uL (3.5-5.4) 05/14/17 07:20 Hgb 14.5 g/dL (12.0-16.0) 05/14/17 07:20 Hct 43.7 % (36.0-47.0) 05/14/17 07:20 MCV 94.9 fL (80.0-100.0) 05/14/17 07:20 MCH 31.4 pg (27.0-34.0) 05/14/17 07:20 MCHC 33.1 g/dL (33.0-35.0) 05/14/17 07:20 RDW 13.9 % (11.6-16.5) 05/14/17 07:20 Plt Count 216 X10^3/uL (150.0-450.0) 05/14/17 07:20 MPV 10.0 fL (7.4-11.0) 05/14/17 07:20 Neut % (Auto) 84.8 % (42.0-75.0) H 05/14/17 07:20 Lymph % (Auto) 7.7 % (21.0-51.0) L 05/14/17 07:20 [place] % (Auto) 7.0 % (0.0-13.0) 05/14/17 07:20 Eos % (Auto) 0.1 % (0.9-2.9) L 05/14/17 07:20 Baso % (Auto) 0.4 % (0.2-1.0) 05/14/17 07:20 Neut # (Auto) 17.4 x10^3/uL (2.2-4.8) H 05/14/17 07:20 Lymph # (Auto) 1.6 X10^3/uL (1.3-2.9) 05/14/17 07:20 [place] # (Auto) 1.4 x10^3/uL (0.3-0.8) H 05/14/17 07:20 Eos # (Auto) 0.0 x10^3/uL (0.0-0.2) 05/14/17 07:20 Baso # (Auto) 0.1 X10^3/uL (0.0-0.1) 05/14/17 07:20 Absolute Nucleated RBC 0.8 /100WBC 05/14/17 07:20 INR Target Range - 05/11/17 11:28 INR 1.21 (0.8-1.3) 05/11/17 11:28 APTT 46.1 SECONDS (22.9-36.5) H 05/14/17 07:20 PTT Comment - 05/14/17 07:20 Sample Site Rrad 05/14/17 04:43 ABG pH 7.410 (7.35-7.45) 05/14/17 04:43 ABG pCO2 34.0 mmHg (35.0-45.0) L 05/14/17 04:43 ABG pO2 67.0 mmHg (80.0-100.0) L 05/14/17 04:43 ABG HCO3 21.6 mmol/L (22-26) L 05/14/17 04:43 ABG O2 Saturation 93.0 % (90-100) 05/14/17 04:43 ABG Base Excess -2.4 mmol/L (-2.0-2.0) L 05/14/17 04:43 Lorenzo Test Pos 05/14/17 04:43 A-a Gradient 461.0 mmHg 05/14/17 04:43 FiO2 80.000 05/14/17 04:43 Blood Gas Comments Alexa abg well-mtf 05/14/17 04:43 Sodium 148 mmol/L (136-145) H 05/14/17 07:20 Corrected Sodium 149 mmol/L (136-145) H 05/14/17 07:20 Potassium 6.0 mmol/L (3.5-5.1) H* 05/14/17 07:20 Chloride 112 mmol/L (98-107) H 05/14/17 07:20 Carbon Dioxide 19.1 mmol/L (21-32) L 05/14/17 07:20 BUN 93 mg/dL (7-18) H 05/14/17 07:20 Creatinine 4.02 mg/dL (0.55-1.02) H 05/14/17 07:20 Est GFR (MDRD) Af Amer 14 (>60) L 05/14/17 07:20 Est GFR (MDRD) Non-Af 12 (>60) L 05/14/17 07:20 Glucose 160 mg/dL (65-99) H 05/14/17 07:20 POC Glucose (mg/dL) 182 mg/dL (65-99) H 05/14/17 20:48 Calcium 7.7 mg/dL (8.5-10.1) L 05/14/17 07:20 Corrected Calcium 9.2 mg/dL (8.5-10.1) 05/14/17 07:20 Total Bilirubin 1.20 mg/dL (0.2-1.0) H 05/14/17 07:20 AST 822 Units/L (15-37) H 05/14/17 07:20 ALT 1415 Units/L (12-78) H 05/14/17 07:20 Alkaline Phosphatase 82 Units/L (46-116) 05/14/17 07:20 Creatine Kinase 671 Units/L (26-192) H 05/14/17 07:20 CK-MB (CK-2) 7.8 ng/mL (0-4.0) H* 05/14/17 07:20 CK/CKMB % Calc 1.2 % (<4) 05/14/17 07:20 Troponin I 103.85 ng/mL (0-1.5) H* 05/14/17 07:20 Total Protein 7.1 g/dL (6.4-8.2) 05/14/17 07:20 Albumin 2.1 g/dL (3.4-5.0) L 05/14/17 07:20 Globulin 5.0 g/dL (2.5-4.5) H 05/14/17 07:20 Albumin/Globulin Ratio 0.4 Ratio (1.1-2.1) L 05/14/17 07:20 Prealbumin 16.4 mg/dL (18-35.7) L 05/13/17 06:11 Triglycerides 71 mg/dL (0-150) 05/11/17 05:15 Cholesterol 180 mg/dL (0-200) 05/11/17 05:15 LDL Cholesterol, Calc 121 mg/dL (0-100) H 05/11/17 05:15 HDL Cholesterol 45 mg/dL (40-60) 05/11/17 05:15 Cholesterol/HDL Ratio 4.0 (0.0-5.0) 05/11/17 05:15 Specimen Type Catherized urine 05/10/17 17:21 Urine Color Yellow (YELLOW) 05/10/17 17:21 Urine Appearance Clear (CLEAR) 05/10/17 17:21 Urine pH 6.0 (5.0 - 8.0) 05/10/17 17:21 Ur Specific [place] 1.015 (1.000-1.030) 05/10/17 17:21 Urine Protein 3+ (NEGATIVE) 05/10/17 17:21 Urine Glucose (UA) 1+ (NEGATIVE) 05/10/17 17:21 Urine Ketones Negative (NEGATIVE) 05/10/17 17:21 Urine Occult Blood 2+ (NEGATIVE) 05/10/17 17:21 Urine Nitrite Negative (NEGATIVE) 05/10/17 17:21 Urine Bilirubin Negative (NEGATIVE) 05/10/17 17:21 Urine Urobilinogen Normal (NORMAL) 05/10/17 17:21 Ur Leukocyte Esterase Negative (NEGATIVE) 05/10/17 17:21 Urine RBC 5-10 /HPF (NONE SEEN) 05/10/17 17:21 Urine WBC 0-2 /HPF (NONE SEEN) 05/10/17 17:21 Ur Squamous Epith Cells Rare /HPF (NEGATIVE) 05/10/17 17:21 Urine Bacteria Negative /HPF (NEGATIVE) 05/10/17 17:21 Hyaline Casts Few /LPF (NEGATIVE) 05/10/17 17:21 Ur Culture Indicated? No/not indicated 05/10/17 17:21 Acetone, Semi-Quant Negative (NEGATIVE) 05/10/17 16:22 - Plan (1) Myocardial infarction Status: Suspected Qualifiers: Myocardial infarction type: unspecified Involved coronary artery: unspecified coronary artery Qualified Code(s): I21.9 - Acute myocardial infarction, unspecified Plan: EPINEPHRINE DRIP, MECHANICAL VENTILLATION, VERSED DRIP AND MORPHINE DRIP FOR SEDATION, RESPIRATORY TREATMENTS, MONITOR SERIAL CARDIAC ENZYMES AND EKG, CONTINUE TO MONITOR (2) Respiratory failure requiring intubation Status: Acute Plan: MECHANICAL VENTILLATION, EPINEPHRINE DRIP, VERSED DRIP AND MORPHINE DRIP FOR SEDATION, RESPIRATORY TREATMENTS, MONITOR SERIAL CARDIAC ENZYMES AND EKG, CONTINUE TO MONITOR (3) Congestive heart failure Status: Acute Qualifiers: Heart failure type: unspecified Heart failure chronicity: acute Qualified Code(s): I50.9 - Heart failure, unspecified Plan: LASIX 40MG IV Q12H X 2 DOSES, CONTINUE TO MONITOR
[2017-05-15 05:20] LABS: ABG ALLEN TEST POS; ABG BASE EXCESS -3.4 mmol/L (-2.0-2.0); ABG HCO3 21.4 mmol/L (22-26)
[2017-05-15] MEDS: LOPRESSOR INJ 5 MG AMP IVP SCH (05:36)
[2017-05-15] MEDS: FORTAZ or TAZICEF INJ 1 GM in NS 100 ML IV + SPIKE MINIBAG* 100 ML IV SCH (05:36)
[2017-05-15 06:29] LABS: BASOPHILS # (AUTO) 0.1 X10^3/uL (0.0-0.1); BASOPHILS % (AUTO) 0.3 % (0.2-1.0); HEMATOCRIT 40.5 % (36.0-47.0); HEMOGLOBIN 13.4 g/dL (12.0-16.0); LYMPHOCYTES # (AUTO) 1.1 X10^3/uL (1.3-2.9); MEAN CORPUSCULAR HEMOGLOBIN 31.4 pg (27.0-34.0); MEAN CORPUSCULAR VOLUME 95.1 fL (80.0-100.0); MEAN PLATELET VOLUME 10.9 fL (7.4-11.0); MONOCYTES % (AUTO) 6.6 % (0.0-13.0); NEUTROPHILS # (AUTO) 13.2 x10^3/uL (2.2-4.8); NEUTROPHILS % (AUTO) 86.1 % (42.0-75.0); PLATELET COUNT 183 X10^3/uL (150.0-450.0); RED BLOOD COUNT 4.26 X10^6/uL (3.5-5.4); RED CELL DISTRIBUTION WIDTH 13.6 % (11.6-16.5); WHITE BLOOD COUNT 15.4 X10^3/uL (3.6-10.0)
[2017-05-15 06:48] LABS: ALBUMIN 1.8 g/dL (3.4-5.0); CALCIUM 7.4 mg/dL (8.5-10.1); CARBON DIOXIDE 18.5 mmol/L (21-32); COR CA(FOR HYPOALB) 9.2 mg/dL (8.5-10.1); CREATININE 3.95 mg/dL (0.55-1.02); TOTAL PROTEIN 6.2 g/dL (6.4-8.2)
[2017-05-15 07:07] LABS: TROPONIN I 91.16 ng/mL (0-1.5)
[2017-05-15 07:11] LABS: PLATELET MORPHOLOGY COMMENT NORMAL (NORMAL)
[2017-05-15 07:23] LABS: CKMB % 1.4 % (<4)
[2017-05-15 07:39] LABS: CREATINE KINASE MB 8.3 ng/mL (0-4.0)
[2017-05-15] MEDS: TYLENOL SUPP 650 MG PR PRN (07:50)
--- NOTE | 2017-05-15 08:32 | RAD ---
HISTORY: Shortness of breath Study: Single-view of the chest Comparison: May 14, 2017 Findings: The patient is rotated. The cardiac silhouette is enlarged with pulmonary vascular congestion simila r to prior exam.. Atelectasis and/or infiltrate are again noted within the right lower lobe. Bilater al pleural effusions are again demonstrated as well. Endotracheal tube placement is noted with the ti p projecting between the clavicles and richelle. The aortic knob is partially calcified.. IMPRESSION: Cardiomegaly with pulmonary vascular congestion similar to prior study. Right basilar atelectasis and/or infiltrate. Small bilateral pleural effusions right greater than left. Reported By:
[2017-05-15] MEDS: DIFLUCAN 200 MG IV PREMIX* 200 MG/100 ML BAG IV SCH (09:25)
[2017-05-15] MEDS: LEVAQUIN PREMIX IV 250 MG 250 MG/50 ML BAG IV SCH (09:25)
[2017-05-15] MEDS: ARTIFICIAL TEARS DROPS AFFEYE SCH (09:26)
[2017-05-15] MEDS ORDERED: VERSED 100 MG in NS 100 ML IV 80 ML IV PRN (10:30)
[2017-05-15] MEDS: MORPHINE SULFATE PCA 30 MG IVP PRN ×2 (10:46→11:20)
[2017-05-15 12:55] VITALS: BP 91/55
== END 2017-05-15 12:45 | disposition expired ==
LOC: ER 04:20 → MED/SURG 07:11 → ICU 16:39 → OBSVTOIN 22:46
PROVIDERS: ADMIT Internal Medicine; ATTEND Internal Medicine
PROC: 0BH17EZ Insertion of Endotracheal Airway into Trachea, Via Natural or Artificial Opening (ICD-10-PCS; principal; 2017-05-10)
PROC: 5A1955Z Respiratory Ventilation, Greater than 96 Consecutive Hours (ICD-10-PCS; 2017-05-10)
DX: I21.9 Acute myocardial infarction, unspecified (principal); R07.89 Other chest pain; E11.65 Type 2 diabetes mellitus with hyperglycemia; E78.2 Mixed hyperlipidemia; I10 Essential (primary) hypertension; E03.8 Other specified hypothyroidism; I50.9 Heart failure, unspecified; I25.9 Chronic ischemic heart disease, unspecified; R79.89 Other specified abnormal findings of blood chemistry; R94.31 Abnormal electrocardiogram [ECG] [EKG]; Z95.5 Presence of coronary angioplasty implant and graft; R60.0 Localized edema; Z66 Do not resuscitate; R06.03 Acute respiratory distress; I46.9 Cardiac arrest, cause unspecified
CPT/HCPCS: 31500; 36415; 36600; 70450; 71045; 80053; 80061; 81001; 82009; 82550; 82553; 82803; 84134; 84484; 85025; 85610; 85730; 87040; 87070; 87205; 93005; 93306; 94002; 94003; 94640; 94760; 96365; 99284; A4216; A4222; G8990; G8991; G0378; J0713; J1450; J1644; J1815; J1940; J1956; J2250; J2270; J2271; J3490